=== PATIENT | male | born 1995 | race Two or more races ===

== ENCOUNTER 2018-01-03 22:29 | Emergency (ER) | payer OTHER ==
[~2018-01-03] VITALS: Ht 175.3 cm; Wt 72.6 kg
--- NOTE | 2018-01-03 22:30 | NUR ---
PT AA/OX4 COMPLAINING OF UPPER AND LOWER EXTREMITY NUMBNESS. AMUBLATED TO HOSPITAL BED WITH STABLE GAIT. NO S/S OF SOB. SKIN PINK, WARM, DRY. NAD. VSS. STABLE CONDITION. AWAITING MD ORDERS.
[2018-01-03] MEDS ORDERED: LORAZEPAM 1 MG TABLET ONE (23:16)
[2018-01-03] MEDS ORDERED: LORAZEPAM 1 MG TABLET PO ONE (23:30)
[2018-01-03 23:38] LABS: BASOPHILS % (AUTO) 0.4 % (0.0-2.0); HEMATOCRIT 43 % (39-51); HEMOGLOBIN 14.8 g/dL (13.5-17.5); LYMPHOCYTES # (AUTO) 1.7 /CMM (0.8-4.8); LYMPHOCYTES % (AUTO) 28.2 % (20.0-44.0); MEAN CORPUSCULAR HEMOGLOBIN 32 PG (26.0-33.0); MEAN CORPUSCULAR HGB CONC 35 g/dl (31.0-36.0); MEAN CORPUSCULAR VOLUME 93 fL (80-96); MONOCYTES # (AUTO) 0.6 /CMM (0.1-1.30); MONOCYTES % (AUTO) 9.4 % (2.0-12.0); NEUTROPHILS # (AUTO) 3.7 /CMM (1.8-8.9); PLATELET COUNT (AUTO) 234 /CMM (150-450); RDW COEFFICIENT OF VARIATION 13.2 (11.5-15.0); RED BLOOD CELL COUNT(AUTO) 4.65 MIL/uL (4.5-6.0); WHITE BLOOD COUNT (AUTO) 6.1 K/uL (4.3-11.0)
--- NOTE | 2018-01-03 23:42 | NUR ---
[facility] CALLED.
[2018-01-03 23:50] LABS: CALCIUM, SERUM 8.5 mg/dL (8.5-10.1); CREATININE 1.1 mg/dL (0.6-1.3); POTASSIUM 3.8 mmol/L (3.5-5.1)
[2018-01-03 23:56] LABS: BILIRUBIN,TOTAL 0.7 mg/dL (0.2-1.0); TOTAL PROTEIN, SERUM 7.1 g/dL (6.4-8.2)
--- NOTE | 2018-01-04 01:07 | NUR ---
[facility] ED; [phone]; DR. DAVIS; BLD; ETA [id number]
--- NOTE | 2018-01-04 01:42 | NUR ---
Patient does not wish to proceed with medical care recommended by Dr. GIL. Patient given information related to possible complications, up to and including , which could occur as a result of leaving the hospital at this time. Patient verbalizes understanding of risks involved due to leaving against medical advice. Patient has signed AMA form. AMBULATED WITH STEADY GAIT UPON DC.
[2018-01-04 01:54] VITALS: BP 112/75
== END 2018-01-04 01:54 | disposition left against medical advice (07) ==
LOC: ER 22:31
DX: R20.2 Paresthesia of skin (principal); R53.1 Weakness
CPT/HCPCS: 36415; 80053-TC; 85025-TC; A4606; Z7610